=== PATIENT | female | born 1955 | race Caucasian/White ===

== ENCOUNTER 2017-01-24 08:32 | Outpatient (CLI) | payer OTHER ==
--- NOTE | 2017-01-24 10:52 | DIAGNOSTIC IMAGING REPORT ---
PROCEDURE: MR BRAIN WITHOUT CONTRAST INDICATION: HEADACHES, NECK PAIN, PERIPHERAL NEUROPATHY TECHNIQUE: Multiplanar multisequence MRI imaging of the brain without contrast. COMPARISON: None. FINDINGS: The midline structures are normally formed. The ventricular system is normal in size. Basal cisterns are patent. Flow voids in the major intracranial vessels are normal. Minimal focal areas of increased signal in the periventricular white matter consistent with small-vessel ischemic disease. No restricted diffusion to suggest acute ischemia. No evidence of acute or chronic intraparenchymal or extra-axial hemorrhage. No mass, mass effect, or midline shift. Normal signal in the visible bones. The sinuses are normally aerated. Visible extracranial soft tissues including the orbits are normal. IMPRESSION: 1. Minimal small-vessel ischemic disease in the white matter.
--- NOTE | 2017-01-24 11:11 | DIAGNOSTIC IMAGING REPORT ---
PROCEDURE: MR CERVICAL SPINE W/O CONT INDICATION: HEADACHES, NECK PAIN, PERIPHERAL NEUROPATHY TECHNIQUE: Noncontrast T1, T2, and STIR sagittal images. T2 and gradient axial images. COMPARISON: None. FINDINGS: C1-2: Normal. C2-3: Normal. C3-4: Normal. C4-5: Normal. C5-6: Spondylosis with spinal stenosis and bilateral foraminal impingement. C6-7: Spondylosis with spinal stenosis and impingement of the right neural foramina. C7-T1: Normal. IMPRESSION: 1. Spondylosis and spinal stenosis C5-6 bilaterally and C6-7 on the right.
== END 2017-01-24 23:00 ==
LOC: MRI SRH 08:32
DX: I67.82 Cerebral ischemia (principal); M47.812 Spondylosis without myelopathy or radiculopathy, cervical region; M48.02 Spinal stenosis, cervical region